=== PATIENT | male | born 1970 | race Caucasian/White ===

== ENCOUNTER 2017-12-17 21:18 | Emergency (ER) | payer BC ==
[2017-12-17] MEDS: TETRACAINE 0.5% OPHTH SOLN 4ML OU (22:43)
[2017-12-17] MEDS: ERYTHROMYCIN OPHTH OINT OD (23:33)
== END 2017-12-17 23:10 | disposition home or self-care (01) ==
LOC: M ED 21:18
DX: H57.11 Ocular pain, right eye (principal); T15.01XA Foreign body in cornea, right eye, initial encounter; X58.XXXA Exposure to other specified factors, initial encounter; Y92.89 Other specified places as the place of occurrence of the external cause
CPT/HCPCS: 99284

== ENCOUNTER 2018-06-27 00:11 | Emergency (ER) | payer BC ==
[~2018-06-27] VITALS: Ht 180.3 cm; Wt 90.9 kg
[2018-06-27] MEDS ORDERED: PROAAER10 INH (00:22)
[2018-06-27] MEDS ORDERED: ADV250INH INH (00:22)
[2018-06-27] MEDS ORDERED: GLUCAGON FOR INJ 1 MG VIAL (J1610) IV ONE (02:00)
[2018-06-27 02:32] VITALS: BP 112/67
--- NOTE | 2018-06-27 09:08 | REP ---
Clinical: Foreign body . Comparison: 04/02/2007 . Technique: PA and lateral. Findings: The mediastinum and cardiac silhouette are normal. The lung dawn are clear and without acute consolidation, effusion, or pneumothorax. The skeletal structures are intact and normal. Incidental left nipple piercing noted. Impression: 1. No acute cardiopulmonary process. Electronically Signed by Chris Bettencourt MD 06/27/2018 08:58 A
== END 2018-06-27 02:33 | disposition home or self-care (01) ==
LOC: M ED 00:11
DX: T18.128A Food in esophagus causing other injury, initial encounter (principal); X58.XXXA Exposure to other specified factors, initial encounter; Y92.89 Other specified places as the place of occurrence of the external cause; J45.909 Unspecified asthma, uncomplicated; Z79.51 Long term (current) use of inhaled steroids